=== PATIENT | male | born 1965 | race Caucasian/White ===

== ENCOUNTER 2017-02-10 15:20 | Inpatient (IN) | payer OTHER ==
[~2017-02-10] VITALS: Ht 167.6 cm; Wt 90.6 kg
[2017-02-10 16:08] LABS: HEMATOCRIT 44.7 % (38.0-50.0); MCH 30.4 PG (29.0-34.0); MCHC 35.3 G/DL (30.0-36.0); MCV 86.1 FL (86-99); MEAN PLAT.VOLUME 10.5 uM^3 (9.0-12.4); PLATELET COUNT 153 K/uL (156-360); RBC DIS.WIDTH-CV 12.5 % (11.8-14.6); RBC DIS.WIDTH-SD 39.1 % (39-53); RED BLOOD COUNT 5.19 M/uL (4.00-5.50); WHITE BLOOD COUNT 8.9 K/uL (4.1-10.2)
[2017-02-10 16:27] LABS: CHLORIDE 111 mEq/L (99-109); POTASSIUM 5.6 mEq/L (3.7-5.4); SODIUM 140 mEq/L (136-147)
[2017-02-10 16:29] LABS: GLUCOSE 171 mg/dL (70-99)
[2017-02-10 16:29] LABS: POINT-OF-CARE METER ID UU13113747
[2017-02-10 16:30] LABS: ANION GAP 15 MEQ/L (2-14)
[2017-02-10 16:31] LABS: TOTAL BILIRUBIN 0.6 mg/dL (0.0-1.0)
[2017-02-10 16:33] LABS: ALKALINE PHOSPHATASE 60 IU/L (3-129); GFR ESTIMATE (CALCULATED) 49 mL/min/
[2017-02-10 16:34] LABS: UREA NITROGEN (BUN) 12 mg/dL (9-23)
[2017-02-10 17:25] LABS: POINT-OF-CARE METER ID UU13113747
[2017-02-10 18:22] LABS: POINT-OF-CARE METER ID UU13113747
[2017-02-10 19:08] LABS: ADD MIUA? YES; BILIRUBIN NEGATIVE; BLOOD SMALL; COLOR STRAW ((YELLOW)); GLUCOSE (STRIP) 50; KETONES NEGATIVE; LEUKOCYTES NEGATIVE; NITRITE NEGATIVE; PROTEIN (STRIP) 100; SPECIFIC GRAVITY 1.008 (1.000-1.030); UROBILINOGEN 0.2 MG/DL (0.2-1.0)
[2017-02-10 19:24] LABS: BACTERIA NONE SEEN /HPF; EPITHELIAL CELLS RARE /HPF; HYALINE CASTS 0-5 /LPF; MUCUS TRACE /LPF; RED BLOOD CELLS 0-5 /HPF (0-5); UCUL ADDED? NO; WHITE BLOOD CELLS 0-5 /HPF (0-5)
[2017-02-10 19:30] VITALS: BP 94/80
[2017-02-10 19:41] VITALS: BP 144/85
[2017-02-10 19:45] LABS: AMPHETAMINE NEGATIVE (500 ng/mL); BARBITURATES NEGATIVE (200 ng/mL); BENZODIAZEPINES NEGATIVE (150 ng/mL); COCAINE NEGATIVE (150 ng/mL); INTERNAL CONTROLS VALID? YES; METHADONE NEGATIVE (200 ng/mL); METHAMPHETAMINE NEGATIVE (500 ng/mL); OPIATES (MORPHINE) NEGATIVE (100 ng/mL); OXYCODONE NEGATIVE (100 ng/mL); PHENCYCLIDINE NEGATIVE (25 ng/mL); PROPOXYPHENE NEGATIVE (300 ng/mL); THC CANNABINOIDS NEGATIVE (50 ng/mL); TRICYCLIC ANTIDEPRESSANTS NEGATIVE (300 ng/mL)
[2017-02-10 20:13] LABS: POINT-OF-CARE METER ID UU13113748; POINT-OF-CARE USER ID RADDRS44
[2017-02-10] MEDS ORDERED: LO-DOSE ASPIRIN81 M2 PO (20:50)
[2017-02-10] MEDS ORDERED: PRINIVIL10 MG PO (20:50)
[2017-02-10] MEDS ORDERED: LANTUS 10100 UNITS/ SC (20:50)
[2017-02-10] MEDS ORDERED: GLUCOPHAGE1000 MG PO (20:51)
[2017-02-10] MEDS ORDERED: ELAVIL25 MG PO (20:51)
[2017-02-10] MEDS ORDERED: PRAVASTATIN SOD40 MG PO (20:51)
[2017-02-10] MEDS ORDERED: DEPAKOTE250 MG PO (20:52)
[2017-02-10 20:58] LABS: ANION GAP 13 MEQ/L (2-14); CHLORIDE 112 MEQ/L (99-109); GFR ESTIMATE (CALCULATED) > 59 mL/min/; GLUCOSE 108 mg/dL (70-99); POTASSIUM 6.1 MEQ/L (3.7-5.4); SAMPLE HEMOLYSIS CHECK 0; SAMPLE ICTERIC CHECK 0; SAMPLE LIPEMIA CHECK 0; SODIUM 141 MEQ/L (136-147); UREA NITROGEN (BUN) 12 mg/dL (9-23)
[2017-02-10 21:00] VITALS: BP 119/75
[2017-02-10 21:30] LABS: BASE EXCESS -8.1 mEq/L (-3 to +3); BICARBONATE 16.2 mEq/L (22-26); COMMENTS - BLOOD GASES C+A+; FI02 21 %; METHEMOGLOBIN 1.7 % (0-1.5); O2 FLOW 0 L/MIN; PCO2 30 mm Hg (35-45); PO2 84 mm Hg (80-100); SITE RR; pH 7.34 (7.35-7.45)
[2017-02-10 21:35] LABS: SALICYLATE < 5.0 MG/DL (15-30)
[2017-02-10 21:36] LABS: POINT-OF-CARE METER ID UU13113748
[2017-02-10 22:00] VITALS: BP 131/71
[2017-02-10 22:05] LABS: METH RESISTANT S AUREUS PCR NEGATIVE (NEGATIVE)
[2017-02-10 22:06] LABS: PROBE CHECK PASS; SPECIMEN PROCESSING CONTROL PASS
[2017-02-10 22:18] LABS: POINT-OF-CARE METER ID UU13113748; POINT-OF-CARE USER ID RADDRS44
[2017-02-10 23:00] VITALS: BP 138/73
[2017-02-10 23:32] LABS: POINT-OF-CARE METER ID UU13113748; POINT-OF-CARE USER ID 609231305
[2017-02-11] VITALS (10 sets, daily range): BP systolic 96–130; BP diastolic 65–74
[2017-02-11 01:11] LABS: CHLORIDE 103 mEq/L (99-109); SODIUM 139 mEq/L (136-147)
[2017-02-11 01:14] LABS: ANION GAP 15 MEQ/L (2-14)
[2017-02-11 01:15] LABS: GLUCOSE 303 mg/dL (70-99); POTASSIUM 4.4 mEq/L (3.7-5.4)
[2017-02-11 01:16] LABS: GFR ESTIMATE (CALCULATED) 57 mL/min/
[2017-02-11 01:17] LABS: UREA NITROGEN (BUN) 14 mg/dL (9-23)
[2017-02-11 01:45] LABS: BASE EXCESS -2.2 mEq/L (-3 to +3); BICARBONATE 21.2 mEq/L (22-26); CARBOXY HGB 2.3 % (0-5); COMMENTS - BLOOD GASES C+; FI02 21 %; METHEMOGLOBIN 1.7 % (0-1.5); O2 FLOW 0 L/MIN; PCO2 32 mm Hg (35-45); PO2 70 mm Hg (80-100); SITE RB; pH 7.43 (7.35-7.45)
[2017-02-11 05:19] LABS: BASE EXCESS -0.7 mEq/L (-3 to +3); BICARBONATE 23.4 mEq/L (22-26); CARBOXY HGB 1.9 % (0-5); METHEMOGLOBIN 1.7 % (0-1.5); PCO2 36 mm Hg (35-45); pH 7.42 (7.35-7.45)
[2017-02-11 05:20] LABS: COMMENTS - BLOOD GASES C+; DEVICE NC; O2 FLOW 2 L/MIN; PO2 97 mm Hg (80-100); SITE RB
[2017-02-11 05:41] LABS: POINT-OF-CARE USER ID RADDRS44
[2017-02-11 06:54] LABS: ANION GAP 14 MEQ/L (2-14); CHLORIDE 101 MEQ/L (99-109); GFR ESTIMATE (CALCULATED) > 59 mL/min/; POTASSIUM 4.2 MEQ/L (3.7-5.4); SAMPLE HEMOLYSIS CHECK 0; SAMPLE ICTERIC CHECK 0; SAMPLE LIPEMIA CHECK 0; SODIUM 140 MEQ/L (136-147); UREA NITROGEN (BUN) 16 mg/dL (9-23)
[2017-02-11 06:57] LABS: GLUCOSE 143 mg/dL (70-99)
[2017-02-11 09:59] LABS: ANION GAP 13 MEQ/L (2-14); CHLORIDE 103 MEQ/L (99-109); GFR ESTIMATE (CALCULATED) > 59 mL/min/; POTASSIUM 3.5 MEQ/L (3.7-5.4); SAMPLE HEMOLYSIS CHECK 0; SAMPLE ICTERIC CHECK 0; SAMPLE LIPEMIA CHECK 0; SODIUM 140 MEQ/L (136-147); UREA NITROGEN (BUN) 16 mg/dL (9-23)
[2017-02-11 10:03] LABS: GLUCOSE 105 mg/dL (70-99)
== END 2017-02-11 11:12 | DRG 918 ==
LOC: EME 15:20 → EDOF 18:17 → ENRESERV 18:18 → 4WEST 19:27
PROVIDERS: Emergency Medicine; Internal Medicine Critical Care Medicine; Nurse Practitioner Family; Surgery
DX: T38.3X1A Poisoning by insulin and oral hypoglycemic [antidiabetic] drugs, accidental (unintentional), initial encounter (principal); E87.2 Acidosis; I10 Essential (primary) hypertension; B19.20 Unspecified viral hepatitis C without hepatic coma; F60.9 Personality disorder, unspecified; K08.9 Disorder of teeth and supporting structures, unspecified; J44.9 Chronic obstructive pulmonary disease, unspecified; F32.9 Major depressive disorder, single episode, unspecified; E11.9 Type 2 diabetes mellitus without complications; Y92.149 Unspecified place in prison as the place of occurrence of the external cause; Z87.891 Personal history of nicotine dependence; Z91.5 Personal history of self-harm
CPT/HCPCS: 36600; 80048; 80048 91; 80053; 81003; 82803; 82948; 83605; 85027; 87040; 87641; 93005; 94799; 99281; 99285; G0480; J1644; J2405; J3411; J7030; J7070; J7120